=== PATIENT | male | born 1955 | race Two or more races ===

== ENCOUNTER 2023-03-08 11:15 | Inpatient (IN) | payer OTHER ==
[~2023-03-08] VITALS: Ht 167.6 cm; Wt 68.0 kg
[2023-03-08] MEDS ORDERED: LISINOPRIL20 MG PO (11:24)
--- NOTE | 2023-03-08 11:27 | NUR ---
PTE ALERTA Y ORIENTADO X3, REFIERE DOLOR EN EL FLANCO ANI DESDE LAS 1:00AM. PTE CON HX DE TOSIN. PTE REFIERE QUE SHABANA ADVIL A LAS 900AM. SE MONITOREAN SV Y SE UBICA PTE EN PASILLO.
--- NOTE | 2023-03-08 13:53 | NUR ---
PTE ES EVALUADO POR DRA BAPTISTE. SE ORIENTA A PTE SOBRE TRATAMIENTO MEDICO Y VERBALIZA QUE ACEPTA. SE EJECUTA ORDEN MEDICA EN HO TOTALIDAD.
--- NOTE | 2023-03-08 17:21 | NUR ---
PTE REEVALUADO POR DRA. BAPTISTE QUIEN INDICA TX, PTE REFIERE ENTENDER, SE HACEN MUESTRAS DE LABORATORIO Y SE ADMINISTRAN MEDICAMENTOS YAO ORDEN MEDICA Y SIGUIENDO MEDIDAS ASEPTICAS.
== END 2023-03-09 11:25 | disposition home or self-care (01) | DRG 311 ==
LOC: ER 11:15 → ICU-2 17:28
PROVIDERS: ADMIT Internal Medicine; ATTEND Internal Medicine
PROC: BB24ZZZ Computerized Tomography (CT Scan) of Bilateral Lungs (ICD-10-PCS; principal; 2023-03-08)
DX: I20.0 Unstable angina (principal); I10 Essential (primary) hypertension; E78.49 Other hyperlipidemia; F12.10 Cannabis abuse, uncomplicated; F17.200 Nicotine dependence, unspecified, uncomplicated; Z86.73 Personal history of transient ischemic attack (TIA), and cerebral infarction without residual deficits